=== PATIENT | female | born 1965 | race Caucasian/White ===

== ENCOUNTER 2016-10-15 21:46 | Emergency (ER) | payer SELFPAY ==
[2016-10-15 21:48] VITALS: BP 149/99; PULSE 78; RESP 16; TEMP 97.8; O2SAT 100
[2016-10-15] MEDS ORDERED: SODIUM CHLOR 0.9% 1000 ML INJ 1,000 ML IV SCH (22:56)
[2016-10-15 22:58] VITALS: BP 132/75; PULSE 63; RESP 18; O2SAT 98
[2016-10-15] MEDS ORDERED: SODIUM CHLORIDE 0.9% FLUSH 10 ML FLUSH IV FLUSH PRN (23:00)
[2016-10-15] MEDS ORDERED: ONDANSETRON HCL 4 MG/2 ML VIAL IVP ONE (23:00)
[2016-10-15 23:18] LABS: AUTOMATED NEUTROPHIL # 6.9 TH/MM3 (1.8-7.7); BASOPHIL % 0.4 % (0.0-2.0); EOSINOPHIL # 0.1 TH/MM3 (0-0.4); EOSINOPHIL % 0.7 % (0.0-4.0); HEMATOCRIT 42.4 % (35.0-46.0); HEMO FLAGS DIFF FINAL; LYMPH % 11.5 % (9.0-44.0); MEAN CELL VOLUME 86.7 FL (80.0-100.0); MEAN CORPUSCULAR HEMOGLOBIN 30.2 PG (27.0-34.0); MEAN CORPUSCULAR HGB CONC 34.8 % (32.0-36.0); MONO % 7.1 % (0.0-8.0); NEUT % 80.3 % (16.0-70.0); PLATELET COUNT 262 TH/MM3 (150-450); RED BLOOD COUNT 4.88 MIL/MM3 (4.00-5.30); RED CELL DISTRIBUTION WIDTH 14.2 % (11.6-17.2); WHITE BLOOD COUNT 8.6 TH/MM3 (4.0-11.0)
[2016-10-15 23:30] LABS: APTT (PATIENT) 27.4 SEC (24.3-30.1); PROTHROMBIN TIME - PATIENT 11.1 SEC (9.8-11.6)
[2016-10-15 23:36] LABS: ANION GAP 6 MEQ/L (5-15); AST (GOT) 17 U/L (15-37); BICARBONATE 23.1 MEQ/L (21.0-32.0); BLOOD UREA NITROGEN 19 MG/DL (7-18); CHLORIDE 115 MEQ/L (98-107); GLOMERULAR FILTRATION RATE 73 ML/MIN (>89); POTASSIUM 3.3 MEQ/L (3.5-5.1); SODIUM (NA) 144 MEQ/L (136-145)
[2016-10-15 23:37] LABS: ALT (GPT) 22 U/L (10-53)
[2016-10-15 23:40] LABS: ALKALINE PHOSPHATASE 94 U/L (45-117); TOTAL BILIRUBIN ADULT 0.4 MG/DL (0.2-1.0)
[2016-10-15 23:58] VITALS: BP 111/63; PULSE 59; RESP 18; O2SAT 96
[2016-10-16 00:08] LABS: BACTERIA, URINE OCC /hpf; BLOOD, URINE SMALL (NEG); CALCIUM OXALATE CRYSTALS,URINE OCC /hpf; COMMENT (UR) CULT NOT INDICATED; CULTURE IF INDICATED CULT NOT INDICATED; GLUCOSE,URINE NEG (NEG); HYALINE CAST, URINE 14 /lpf (RARE); KETONE, URINE NEG (NEG); MUCUS URINE MANY /lpf (OCC); NITRITE,URINE NEG (NEG); PH, URINE 5.5 (5.0-8.5); SQUAMOUS EPITHELIAL CELL URINE 7 /hpf (0-5); URINE COLOR YELLOW (YELLW/STRAW)
[2016-10-16] MEDS ORDERED: IOHEXOL 350 MG/ML 10 ML VIAL (for RAD DIAG) IV ONE (00:17)
--- NOTE | 2016-10-16 00:42 | RADRPT ---
EXAM DATE/TIME: 10/16/2016 00:10 [place] COMPARISON: No previous studies available for comparison. INDICATIONS : Abdominal pain with nausea, vomiting, diarrhea, and dysuria. IV CONTRAST: 100 cc Omnipaque 350 (iohexol) IV ORAL CONTRAST: No oral contrast ingested. RADIATION DOSE: 15.67 CTDIvol (mGy) MEDICAL HISTORY : Hernia, hiatal. SURGICAL HISTORY : Hysterectomy. Tubal ligation. ENCOUNTER: Initial ACUITY: 1 day PAIN SCALE: 8/10 LOCATION: abdomen TECHNIQUE: Volumetric scanning of the abdomen and pelvis was performed. Using automated exposure control and ad justment of the mA and/or kV according to patient size, radiation dose was kept as low as reasonably achievable to obtain optimal diagnostic quality images. DICOM format image data is available electro nically for review and comparison. FINDINGS: LOWER LUNGS: The visualized lower lungs are clear. LIVER: Homogeneous density without lesion. There is no dilation of the biliary tree. No calcified gallston es. SPLEEN: Normal size without lesion. PANCREAS: Vague area of low attenuation seen of the uncinate process, measures approximate 17 x 22 x 14 mm in s ize. No ductal dilatation. No inflammatory changes. KIDNEYS: Multiple small peripelvic cysts on the left. No hydronephrosis. No stones are demonstrated. ADRENAL GLANDS: Within normal limits. VASCULAR: There is no aortic aneurysm. BOWEL/MESENTERY: The stomach, small bowel, and colon demonstrate no acute abnormality. There is no free intraperitone al air or fluid. ABDOMINAL WALL: Within normal limits. RETROPERITONEUM: There is no lymphadenopathy. BLADDER: No wall thickening or mass. REPRODUCTIVE: Previous hysterectomy. INGUINAL: There is no lymphadenopathy or hernia. MUSCULOSKELETAL: Within normal limits for patient age. CONCLUSION: 1. Vague low density area of the uncinate process of the pancreas of concern for a possible small mas s. Outpatient abdomen MRI with and without contrast is recommended. 2. Otherwise essentially negative. A few small peripelvic cysts are seen in the left kidney. There is no hydronephrosis. Patient has had previous hysterectomy.. Thierno Kendrick MD on October 16, 2016 at 0:37 Board Certified Radiologist. This report was verified electronically.
[2016-10-16] MEDS ORDERED: ACETAMINOPHEN/HYDROcodone 325 MG/5 MG TAB PO ONE (01:45)
[2016-10-16] MEDS ORDERED: DICYCLOMINE HCL 20 MG/2 ML VIAL IM ONE (01:45)
[2016-10-16 02:13] VITALS: BP 117/60; PULSE 56; RESP 16; O2SAT 96
--- NOTE | 2016-10-16 02:16 | PD ---
HPI Chief Complaint: GI Complaint Time Seen by Provider: 22:41 Travel History International Travel<30 days: No Contact w/Intl Traveler<30days: No Traveled to known affect area: No History of Present Illness HPI Patient is a 50 year old female who comes in complaining of nausea, vomiting, and diarrhea since yesterday. She says that after dinner, she started to feel nauseous. She then started vomiting and having multiple episodes of diarrhea. She says she has stopped vomiting today, but continues to have diarrhea. She says she has pain to her back around to the front of her abdomen. She denies fever or chills. She says she has been drinking water, but everything just keeps coming out as diarrhea. She also has not been eating today. [facility] Past Medical History Diabetes: No Patient Takes Glucophage: No Diminished Hearing: No Hiatal Hernia: Yes Immunizations Current: Yes Tetanus Vaccination: < 5 Years Influenza Vaccination: Yes ?: Not Menopausal: Yes : 4 Miscarriage: 1 : 1 Tubal Ligation: Yes Past Surgical History Surgical History: No Previous Surgery Abdominal Surgery: Yes Section: Yes (x2) Hysterectomy: Yes (2008) Social History Alcohol Use: Yes (occasional) Tobacco Use: No Substance Use: No Allergies-Medications (Allergen,Severity, Reaction): Coded Allergies: Penicillin (Verified Allergy, Unknown, RASH VOMITING, 10/15/16) Reported Meds & Prescriptions Reported Meds & Active Scripts Active No Active Prescriptions or Reported Medications Review of Systems Except as stated in HPI: all other systems reviewed are Neg General / Constitutional: No: Fever, Chills HENT: No: Headaches, Lightheadedness Cardiovascular: No: Chest Pain or Discomfort Respiratory: No: Shortness of Breath Gastrointestinal: Positive: Nausea, Vomiting, Diarrhea, Abdominal Pain Genitourinary: No: Dysuria Musculoskeletal: No: Myalgias, Edema Skin: No Rash, No Change in Pigmentation Neurologic: No: Weakness, Dizziness Physical Exam Narrative GENERAL: Awake and alert, in no acute distress. SKIN: Focused skin assessment warm/dry. HEAD: Atraumatic. Normocephalic. EYES: Pupils equal and round. No scleral icterus. ENT: Mucous membranes pink and moist. NECK: Trachea midline. No JVD. CARDIOVASCULAR: Regular rate and rhythm. No murmur appreciated. RESPIRATORY: No accessory muscle use. Clear to auscultation. Breath sounds equal bilaterally. GASTROINTESTINAL: Abdomen soft, nondistended. Tender to palpation along the right side of the abdomen. No rebound or guarding. MUSCULOSKELETAL: No obvious deformities. No clubbing. No cyanosis. No edema. NEUROLOGICAL: Awake and alert. No obvious cranial nerve deficits. Motor grossly within normal limits. Normal speech. PSYCHIATRIC: Appropriate mood and affect; insight and judgment normal. Data Data Last Documented VS Vital Signs Date Time Temp Pulse Resp B/P Pulse Ox O2 Delivery O2 Flow Rate FiO2 10/16/16 02:13 56 16 117/60 96 Room Air 10/15/16 21:48 97.8 Orders Complete Blood Count With Diff (10/15/16 22:56) Comprehensive Metabolic Panel (10/15/16 22:56) Lipase (10/15/16 22:56) Prothrombin Time / Inr (Pt) (10/15/16 22:56) Act Partial Throm Time (Ptt) (10/15/16 22:56) Urinalysis - C+S If Indicated (10/15/16 22:56) Ua Includes Microscopic (10/15/16 22:56) Ct Abd/Pel W Iv Contrast(Rout) (10/15/16 22:56) Iv Access Insert/Monitor (10/15/16 22:56) Ecg Monitoring (10/15/16 22:56) Oximetry (10/15/16 22:56) Ondansetron Inj (Zofran Inj) (10/15/16 23:00) Sodium Chlor 0.9% 1000 Ml Inj (Ns 1000 M (10/15/16 22:56) Sodium Chloride 0.9% Flush (Ns Flush) (10/15/16 23:00) Iohexol 350 Inj (Omnipaque 350 Inj) (10/16/16 00:17) Dicyclomine Inj (Bentyl Inj) (10/16/16 01:45) Acetamin-Hydrocod 325-5 Mg ([place] 5-325 (10/16/16 01:45) Labs Laboratory Tests Test 10/15/16 10/15/16 23:10 23:55 White Blood Count 8.6 TH/MM3 Red Blood Count 4.88 MIL/MM3 Hemoglobin 14.7 GM/DL Hematocrit 42.4 % Mean Corpuscular Volume 86.7 FL Mean Corpuscular Hemoglobin 30.2 PG Mean Corpuscular Hemoglobin 34.8 % Concent Red Cell Distribution Width 14.2 % Platelet Count 262 TH/MM3 Mean Platelet Volume 8.6 FL Neutrophils (%) (Auto) 80.3 % Lymphocytes (%) (Auto) 11.5 % Monocytes (%) (Auto) 7.1 % Eosinophils (%) (Auto) 0.7 % Basophils (%) (Auto) 0.4 % Neutrophils # (Auto) 6.9 TH/MM3 Lymphocytes # (Auto) 1.0 TH/MM3 Monocytes # (Auto) 0.6 TH/MM3 Eosinophils # (Auto) 0.1 TH/MM3 Basophils # (Auto) 0.0 TH/MM3 CBC Comment DIFF FINAL Differential Comment Prothrombin Time 11.1 SEC Prothromb Time International 1.0 RATIO Ratio Activated Partial 27.4 SEC Thromboplast Time Sodium Level 144 MEQ/L Potassium Level 3.3 MEQ/L Chloride Level 115 MEQ/L Carbon Dioxide Level 23.1 MEQ/L Anion Gap 6 MEQ/L Blood Urea Nitrogen 19 MG/DL Creatinine 0.82 MG/DL Estimat Glomerular Filtration 73 ML/MIN Rate Random Glucose 109 MG/DL Calcium Level 8.9 MG/DL Total Bilirubin 0.4 MG/DL Aspartate Amino Transf 17 U/L (AST/SGOT) Alanine Aminotransferase 22 U/L (ALT/SGPT) Alkaline Phosphatase 94 U/L Total Protein 8.2 GM/DL Albumin 4.2 GM/DL Lipase 104 U/L Urine Color YELLOW Urine Turbidity HAZY Urine pH 5.5 Urine Specific [place] 1.034 Urine Protein 30 mg/dL Urine Glucose (UA) NEG mg/dL Urine Ketones NEG mg/dL Urine Occult Blood SMALL Urine Nitrite NEG Urine Bilirubin NEG Urine Urobilinogen LESS THAN 2.0 MG/DL Urine Leukocyte Esterase NEG Urine RBC 2 /hpf Urine WBC 4 /hpf Urine Squamous Epithelial 7 /hpf Cells Urine Calcium Oxalate Crystals OCC /hpf Urine Amorphous Sediment RARE Urine Bacteria OCC /hpf Urine Hyaline Casts 14 /lpf Urine Mucus MANY /lpf Microscopic Urinalysis Comment CULT NOT INDICATED MDM Medical Decision Making Medical Screen Exam Complete: Yes Emergency Medical Condition: Yes Differential Diagnosis Gastroenteritis versus cholecystitis versus colitis versus appendicitis Narrative Course Patient is a 50-year-old female comes in complaining of nausea, vomiting, diarrhea. Exam shows tenderness to the right side of the abdomen. IV established, labs sent. Labs show no acute abnormalities. Patient given IV fluids, Zofran. Given Bentyl and Lortab. CT of the abdomen and pelvis shows a possible pancreatic mass. Outpatient MRI is recommended. Patient informed of these results. She is advised to follow- up at the is a clinic or to get a primary care doctor. Advised she really needs to have further imaging done to evaluate this possible mass. Last 24 hours Impressions Abdomen/Pelvis CT 10/15/16 2256 Signed Impressions: Service Date/Time: Sunday, October 16, 2016 00:10 - CONCLUSION: 1. Vague low density area of the uncinate process of the pancreas of concern for a possible small mass. Outpatient abdomen MRI with and without contrast is recommended. 2. Otherwise essentially negative. A few small peripelvic cysts are seen in the left kidney. There is no hydronephrosis. Patient has had previous hysterectomy.. Thierno Kendrick MD She is able to drink water without vomiting. She is encouraged to drink plenty of fluids. Advised that the diarrhea may continue for a few days, but should eventually slowed down and stopped. Advised to return to the ED as needed for any worsening symptoms. Diagnosis Primary Impression: Nausea, vomiting and diarrhea Referrals: [facility] call for appointment Patient Instructions: Acute Nausea and Vomiting (ED), General Instructions Additional Instructions: Drink plenty of fluids. Follow-up with a primary care doctor for outpatient MRI to evaluate the possible mass on her pancreas. He can take Bentyl as needed for cramping pain. Take Lortab for severe pain. Return to the ED as needed for any worsening symptoms. Scripts Hydrocodone-Acetaminophen (Lortab)5-325 Mg Tab1 Tab PO Q6H PRN (PAIN) #7 TAB Ref 0 Prov:Rosemarie Chou MD 10/16/16 Dicyclomine (Bentyl)10 Mg Cap10 Mg PO TID PRN (Bowel Management) #15 CAP Ref 0 Prov:Rosemarie Chou MD 10/16/16 Disposition: 01 DISCHARGE HOME Condition: Stable Rosemarie Chou MD Oct 16, 2016 02:16
[2016-10-16] MEDS ORDERED: DICY10 PO (02:25)
[2016-10-16] MEDS ORDERED: HYDR-3533 PO (02:25)
== END 2016-10-16 02:42 | disposition home or self-care (01) ==
LOC: NEPE 21:46
DX: R11.2 Nausea with vomiting, unspecified (principal); R19.7 Diarrhea, unspecified; R10.9 Unspecified abdominal pain
CPT/HCPCS: 74177; 80053; 81001; 83690; 85025; 85610; 85730; 96372; 96374; 99285; J0500; J2405; J7030; Q9967